=== PATIENT | female | born 1950 | race Caucasian/White ===

== ENCOUNTER → 2017-05-24 | Day surgery (SDC) | payer OTHER ==
[~2017-05-24] MED LIST: FAMO-63 PO; FURO-68 PO; HYDR2TAB31 PO; IV RINGERS,LACTATED 1000ML 1,000 ML IV SCH; LEVO75TA5 PO; LIDOCAINE 2% PF Vial for OR 5 ML VIAL. ONE; OXYC5TAB PO; PROM25VI5 PO; PROPOFOL 20 ML IV ONE; SPIR50TA PO
[2017-05-24 10:36] VITALS: BP 129/60
--- NOTE | 2017-05-25 05:39 | HP ---
ADMIT DATE: 05/24/2017 REFERRING PHYSICIAN: Dr. Lily Travis. HISTORY OF PRESENT ILLNESS: This is a 66-year-old female whose past medical history is significant for cirrhosis with hep B, hep C, hyperlipidemia, hypothyroidism, renal insufficiency, history of colonic polyps, pancreatitis, seen with persistent epigastric abdominal pain, bloating, belching, nausea. She has done well since her ____ without recurrent accumulation; however, she has persistent upper abdominal pain. Weight and appetite have been stable. No bleeding has been encountered and Zofran does not help with the nausea ____ with the persistent symptoms ____ family history of gallbladder disease, upper endoscopy is recommended to further assess. PAST MEDICAL HISTORY: Cirrhosis, hep B, hep C, fibromyalgia, anxiety, arthritis, renal insufficiency, history of colonic polyps. ALLERGIES: IODINE, CAFFEINE, DIPHENHYDRAMINE, ZOFRAN, PENICILLIN, PREDNISONE, ROBAXIN. MEDICATIONS: Include levothyroxine, Lasix, Aldactone, oxycodone, Dilaudid, multivitamin, milk thistle. PAST SURGICAL HISTORY: Thyroid surgery and tonsillectomy. REVIEW OF SYSTEMS: Per records. SOCIAL HISTORY: She is a social drinker and former smoker. Review of systems, as above. PHYSICAL EXAMINATION: GENERAL: Reveals a well-nourished, well-developed female. VITAL SIGNS: Temp is 97.7, pulse 71, respiratory rate is 18. HEENT: Reveals a normocephalic, atraumatic head. Pupils and extraocular muscles not tested. Sclerae anicteric. NECK: Supple. LUNGS: Clear. CARDIOVASCULAR: Reveals an S1, S2 without S3, S4 or appreciable murmur. ABDOMEN: Reveals a soft abdomen, epigastric tenderness to deep palpation, without appreciable hepatosplenomegaly. EXTREMITIES: Reveals no cyanosis, clubbing or edema. IMPRESSION: Epigastric abdominal pain, etiology is to be determined. We will recommend the patient proceed with upper endoscopy to further assess. If this is unrevealing, then further hepatobiliary imaging may be pursued. SONALI PRITCHETT MD DR: KRYSTIAN/yamila JOB#: [id number] / [id number]
== END | disposition home or self-care (01) ==
LOC: ENDOS 09:14
PROVIDERS: ATTEND Internal Medicine Gastroenterology
DX: K29.50 Unspecified chronic gastritis without bleeding (principal); K74.60 Unspecified cirrhosis of liver; K21.9 Gastro-esophageal reflux disease without esophagitis; B19.20 Unspecified viral hepatitis C without hepatic coma; F41.9 Anxiety disorder, unspecified; M19.90 Unspecified osteoarthritis, unspecified site; N28.9 Disorder of kidney and ureter, unspecified; E78.5 Hyperlipidemia, unspecified; E03.9 Hypothyroidism, unspecified; K85.90 Acute pancreatitis without necrosis or infection, unspecified; E78.00 Pure hypercholesterolemia, unspecified; Z86.39 Personal history of other endocrine, nutritional and metabolic disease; Z85.850 Personal history of malignant neoplasm of thyroid; Z88.1 Allergy status to other antibiotic agents; Z88.8 Allergy status to other drugs, medicaments and biological substances; Z91.048 Other nonmedicinal substance allergy status
CPT/HCPCS: 43235; J2704